=== PATIENT | male | born 1960 ===

== ENCOUNTER → 2020-05-02 19:05 | Outpatient (ROUT) | payer OTHER, SELFPAY ==
[2020-05-02 19:57] LABS: Cholesterol 192 mg/dL (140-199); Glucose 89 mg/dL (80-110); HDL Cholesterol 37 mg/dL (40-60); LDL Cholesterol Calculated 103 mg/dL (<100); Triglycerides 259 mg/dL (35-150)
[2020-05-02 20:22] LABS: Prostate Specific Antigen 2.27 ng/mL (0.10-4.00)
== END ==
PROVIDERS: Visit Provider Internal Medicine
DX: Z00.00 Encounter for general adult medical examination without abnormal findings (principal); E78.2 Mixed hyperlipidemia
CPT/HCPCS: 80061; 82947; 84153